=== PATIENT | male | born 1930 | race Caucasian/White ===

== ENCOUNTER 2017-07-13 07:36 | Emergency (ER) | payer MEDICARE, OTHER ==
[~2017-07-13] VITALS: Ht 185.4 cm; Wt 89.8 kg
[~2017-07-13 07:36] MED LIST: ADULT LOW DOSE81 MG PO; BISOPROLOL-HCT1 EAC1 PO; OMEPRAZOLE20 MG PO
[2017-07-13] MEDS ORDERED: ALLOPURINOL300 MG PO (07:54)
[2017-07-13] MEDS ORDERED: OMEPRAZOLE40 MG PO (07:55)
== END 2017-07-13 10:51 | disposition home or self-care (01) ==
LOC: ED 07:36
DX: R10.31 Right lower quadrant pain (principal); I10 Essential (primary) hypertension; M10.9 Gout, unspecified; Z88.0 Allergy status to penicillin; Z88.8 Allergy status to other drugs, medicaments and biological substances; Z79.82 Long term (current) use of aspirin; Z79.899 Other long term (current) drug therapy
CPT/HCPCS: 80053; 81001; 83690; 85025; 85610; 85651; 85730; 99284